=== PATIENT | female | born 1965 | race Caucasian/White ===

== ENCOUNTER 2023-04-18 15:13 | Emergency (ER) | payer OTHER ==
[~2023-04-18] VITALS: Ht 160 cm; Wt 73.6 kg
[2023-04-18] MEDS ORDERED: ACETAMINOPHEN 325 MG TAB PO ONE (17:20)
[2023-04-18] MEDS ORDERED: METH-1164 PO (18:45)
[2023-04-18] MEDS ORDERED: NAPR-837 PO (18:45)
[2023-04-18 19:00] VITALS: BP 120/75; TEMP 97; O2SAT 97
== END 2023-04-18 19:01 | disposition home or self-care (01) ==
LOC: M ED 15:13
DX: Z04.1 Encounter for examination and observation following transport accident (principal)